=== PATIENT | female | born 1980 | race Caucasian/White ===

== ENCOUNTER 2016-11-24 13:04 | Emergency (ER) | payer MEDICAID, OTHER ==
[~2016-11-24] VITALS: Ht 154.9 cm; Wt 44.5 kg
[2016-11-24] MEDS ORDERED: CEFTRIAXONE 500 MG VIAL IM ONE ×2 (13:30→14:00)
[2016-11-24] MEDS ORDERED: AZITHROMYCIN 250 MG TABLET PO ONE (13:30)
[2016-11-24] MEDS ORDERED: AZITHROMYCIN 250 MG TABLET ONE (13:49)
[2016-11-24] MEDS ORDERED: CEFTRIAXONE 500 MG VIAL ONE (13:49)
[2016-11-24] MEDS ORDERED: LIDOCAINE HCL 1% 20 ML VIAL ONE (13:50)
[2016-11-24 13:52] LABS: *BILIRUBIN,URIN NEGATIVE (NEGATIVE); *BLOOD, URINE NEGATIVE (NEGATIVE); *CLARITY,URINE CLEAR (CLEAR); *COLOR,URINE YELLOW (YELLOW); *KETONES,URINE NEGATIVE (NEGATIVE); *PROTEIN,URINE NEGATIVE (NEGATIVE); *UROBILINOGEN,URINE 0.2 E.U./dl (NORMAL); LEUKOCYTE ESTERASE ,URINE NEGATIVE (NEGATIVE); NITRITE, URINE NEGATIVE (NEGATIVE); UGLUCOSE NEGATIVE (NEGATIVE)
--- NOTE | 2016-11-24 13:53 | NUR ---
Female supervisor matrix accompanied female patient for (DR RUBI).
[2016-11-24 14:08] LABS: *URINE HCG, QUAL NEGATIVE (NEGATIVE)
--- NOTE | 2016-11-24 14:42 | NUR ---
Patient discharged to home in stable conditon. Written and verbal after care instructions given. Patient verbalizes understanding of instructions.
[2016-11-24 14:44] VITALS: BP 114/64
[2016-11-24 14:45] LABS: MUCUS,URINE FEW /LPF (0-FEW); SQUAMOUS EPITHELIAL CELL,UR MODERATE /HPF (NONE SEEN); WBC,URINE 0-3 /HPF (0-3)
== END 2016-11-24 14:45 | disposition home or self-care (01) ==
LOC: ER 13:04
DX: N76.0 Acute vaginitis (principal); J06.9 Acute upper respiratory infection, unspecified
CPT/HCPCS: 84703; 87210; A4663; J0696; J3490; Q0144

== ENCOUNTER 2017-04-05 21:17 | Emergency (ER) | payer MEDICAID, OTHER ==
[~2017-04-05] VITALS: Ht 154.9 cm; Wt 44.5 kg
--- NOTE | 2017-04-05 21:47 | NUR ---
Pt came in c/o right foot pain as she hit her right foot. Her care continue as she is been seen by .
--- NOTE | 2017-04-05 21:55 | NUR ---
Pt remain alert, responsive as orders noted for right foot X-RAY but refused test as she signed a waver for the X-RAY. Her care continue as waits X-RAY to be done.
--- NOTE | 2017-04-05 22:09 | NUR ---
Pt is noted resting in bed as X-RAY as ordered. Her care continue as awaits results.
--- NOTE | 2017-04-05 22:11 | NUR ---
Pt noted alert, responsive as result came in for X-RAY off the right foot and MD as read the results to pt and she is been discharge to home with right foot been cast/splinted as ordered.
[2017-04-05 22:17] VITALS: BP 114/66
== END 2017-04-05 22:27 | disposition home or self-care (01) ==
LOC: ER 21:19
DX: S92.511A Displaced fracture of proximal phalanx of right lesser toe(s), initial encounter for closed fracture (principal); W23.0XXA Caught, crushed, jammed, or pinched between moving objects, initial encounter; Y93.89 Activity, other specified; Y92.9 Unspecified place or not applicable; Y99.9 Unspecified external cause status
CPT/HCPCS: 29515; 73660; 99284; A4663

== ENCOUNTER 2017-04-13 18:35 | Emergency (ER) | payer MEDICAID, OTHER ==
[~2017-04-13] VITALS: Ht 154.9 cm; Wt 44.5 kg
[2017-04-13] MEDS ORDERED: ACET-2154 PO (18:44)
--- NOTE | 2017-04-13 19:32 | NUR ---
Pt ambulated to room with steady gait. Pt c/o cough and pain with deep breathing radiating to her back getting progressively worse over 5 days. Resp even and unlabored. Pt speaking in full sentences, no resp distress noted. Lungs CTA. Pt resting in position of comfort for self, awaiting further eval.
--- NOTE | 2017-04-13 21:52 | NUR ---
Patient discharged to home in stable conditon. Written and verbal after care instructions given. Patient verbalizes understanding of instructions.
[2017-04-13 21:53] VITALS: BP 132/80
== END 2017-04-13 21:53 | disposition home or self-care (01) ==
LOC: ER 18:36
DX: J20.9 Acute bronchitis, unspecified (principal)
CPT/HCPCS: 71010; A4663

== ENCOUNTER 2017-05-16 10:21 | Emergency (ER) | payer OTHER ==
[~2017-05-16] VITALS: Ht 154.9 cm; Wt 45.4 kg
[~2017-05-16 10:21] MED LIST: ACET-2154 PO
[2017-05-16 10:51] LABS: *BILIRUBIN,URIN NEGATIVE (NEGATIVE); *BLOOD, URINE NEGATIVE (NEGATIVE); *CLARITY,URINE CLEAR (CLEAR); *COLOR,URINE YELLOW (YELLOW); *KETONES,URINE NEGATIVE (NEGATIVE); *PROTEIN,URINE NEGATIVE (NEGATIVE); *UROBILINOGEN,URINE 0.2 E.U./dl (NORMAL); LEUKOCYTE ESTERASE ,URINE TRACE (NEGATIVE); NITRITE, URINE NEGATIVE (NEGATIVE); PH,URINE 6.5 (5.0-8.0); UGLUCOSE NEGATIVE (NEGATIVE)
[2017-05-16 11:07] LABS: BACTERIA,URINE FEW /HPF (NONE SEEN); RBC,URINE 0-3 /HPF (0-3); SQUAMOUS EPITHELIAL CELL,UR FEW /HPF (NONE SEEN); WBC,URINE 0-3 /HPF (0-3)
[2017-05-16 11:08] LABS: BASOPHILS % (AUTO) 0.1 % (0.0-2.0); EOSINOPHILS % (AUTO) 0.4 % (0.0-7.0); HEMATOCRIT 37.8 % (31.2-41.9); HEMOGLOBIN 12.9 g/dL (10.9-14.3); LYMPHOCYTES # (AUTO) 1.9 K/uL (20.0-40.0); MEAN CORPUSCULAR HEMOGLOBIN 31.1 uug (24.7-32.8); MEAN CORPUSCULAR HGB CONC 34 g/dL (32.3-35.6); MONOCYTES # (AUTO) 0.7 K/uL (2.0-10.0); NEUTROPHILS # (AUTO) 5.2 K/uL (1.8-8.9); NEUTROPHILS % (AUTO) 66.5 % (38.5-71.5); PLATELET COUNT (AUTO) 288 K/uL (179-408); RED BLOOD CELL COUNT(AUTO) 4.15 MIL/uL (3.63-4.92); WHITE BLOOD COUNT (AUTO) 7.8 K/uL (3.8-11.8)
[2017-05-16 11:09] LABS: CREATININE 0.8 mg/dL (0.6-1.3); POTASSIUM 4.2 mmol/L (3.5-5.1)
[2017-05-16 11:14] LABS: BILIRUBIN,TOTAL 0.3 mg/dL (0.2-1.0); TOTAL PROTEIN, SERUM 7.3 g/dL (6.4-8.2)
[2017-05-16 12:04] LABS: *URINE HCG, QUAL NEGATIVE (NEGATIVE)
[2017-05-16] MEDS ORDERED: CIPROFLOXACIN HCL 250 MG TABLET PO ONE (12:04)
[2017-05-16] MEDS ORDERED: PHENAZOPYRIDINE HCL 100 MG TABLET PO ONE (12:05)
--- NOTE | 2017-05-16 12:17 | NUR ---
Patient discharged to home in stable conditon. Written and verbal after care instructions given. Patient verbalizes understanding of instructions.
[2017-05-16 12:18] VITALS: BP 111/71
[2017-05-16] MEDS ORDERED: PHENAZOPYRIDINE HCL 100 MG TABLET ONE (12:23)
[2017-05-16] MEDS ORDERED: CIPROFLOXACIN HCL 250 MG TABLET ONE (12:23)
[2017-05-19 10:08] LABS: *GC NAA Negative (Negative); *TRIC.VAG. NAA Negative (Negative)
== END 2017-05-16 12:18 | disposition home or self-care (01) ==
LOC: ER 10:21
DX: N39.0 Urinary tract infection, site not specified (principal)
CPT/HCPCS: 36415; 84703; 85025; 87210; 87491; A4663

== ENCOUNTER 2017-05-30 12:04 | Emergency (ER) | payer OTHER ==
[~2017-05-30] VITALS: Ht 154.9 cm; Wt 44.5 kg
[2017-05-30 12:38] LABS: *BILIRUBIN,URIN NEGATIVE (NEGATIVE); *BLOOD, URINE NEGATIVE (NEGATIVE); *CLARITY,URINE CLEAR (CLEAR); *COLOR,URINE YELLOW (YELLOW); *KETONES,URINE NEGATIVE (NEGATIVE); *PROTEIN,URINE NEGATIVE (NEGATIVE); *UROBILINOGEN,URINE 0.2 E.U./dl (NORMAL); LEUKOCYTE ESTERASE ,URINE NEGATIVE (NEGATIVE); NITRITE, URINE NEGATIVE (NEGATIVE); PH,URINE 6.5 (5.0-8.0); UGLUCOSE NEGATIVE (NEGATIVE)
[2017-05-30 12:39] LABS: *URINE HCG, QUAL NEGATIVE (NEGATIVE)
[2017-05-30 12:46] LABS: BACTERIA,URINE NONE SEEN /HPF (NONE SEEN); RBC,URINE NONE SEEN /HPF (0-3); WBC,URINE 0-3 /HPF (0-3)
[2017-05-30 12:47] LABS: SQUAMOUS EPITHELIAL CELL,UR FEW /HPF (NONE SEEN)
--- NOTE | 2017-05-30 13:20 | NUR ---
Patient discharged to home in stable conditon. Written and verbal after care instructions given. Patient verbalizes understanding of instructions.pt with family members
== END 2017-05-30 13:22 | disposition home or self-care (01) ==
LOC: ER 12:09
DX: N76.0 Acute vaginitis (principal)
CPT/HCPCS: 81001; 84703; 99284; A4663

== ENCOUNTER 2018-02-08 13:57 | Emergency (ER) | payer OTHER ==
[~2018-02-08] VITALS: Ht 154.9 cm; Wt 45.4 kg
[2018-02-08] MEDS ORDERED: IV NORMAL SALINE 1000 ML BAG IV ONE (14:15)
[2018-02-08] MEDS ORDERED: ONDANSETRON 4 MG/2 ML VIAL IV ONE (14:15)
[2018-02-08] MEDS ORDERED: ONDANSETRON 4 MG/2 ML VIAL ONE (14:32)
[2018-02-08 14:36] LABS: CREATININE 0.8 mg/dL (0.6-1.3)
[2018-02-08 14:41] LABS: BASOPHILS % (AUTO) 0.5 % (0.0-2.0); EOSINOPHILS % (AUTO) 0.6 % (0.0-7.0); HEMATOCRIT 42.5 % (31.2-41.9); HEMOGLOBIN 14.4 g/dL (10.9-14.3); LYMPHOCYTES # (AUTO) 1.9 K/uL (20.0-40.0); LYMPHOCYTES % (AUTO) 24.8 % (20.5-51.5); MEAN CORPUSCULAR HEMOGLOBIN 31.2 uug (24.7-32.8); MEAN CORPUSCULAR HGB CONC 34 g/dL (32.3-35.6); MEAN CORPUSCULAR VOLUME 92.3 fL (75.5-95.3); MONOCYTES # (AUTO) 0.6 K/uL (2.0-10.0); MONOCYTES % (AUTO) 7.1 % (0.0-11.0); NEUTROPHILS # (AUTO) 5.2 K/uL (1.8-8.9); PLATELET COUNT (AUTO) 331 K/uL (179-408); RED BLOOD CELL COUNT(AUTO) 4.61 MIL/uL (3.63-4.92); WHITE BLOOD COUNT (AUTO) 7.8 K/uL (3.8-11.8)
[2018-02-08 14:43] LABS: BILIRUBIN,DIRECT 0.1 mg/dL (0.0-0.2); BILIRUBIN,TOTAL 0.5 mg/dL (0.2-1.0); TOTAL PROTEIN, SERUM 7.8 g/dL (6.4-8.2)
--- NOTE | 2018-02-08 15:33 | NUR ---
Patient discharged to home in stable conditon. Written and verbal after care instructions given. Patient verbalizes understanding of instructions.PT SAYS FEELS BETTER, PT WITH FAMILY MEMBER.
[2018-02-08 15:34] VITALS: BP 111/60
== END 2018-02-08 15:30 | disposition home or self-care (01) ==
LOC: ER 13:57
DX: R19.7 Diarrhea, unspecified (principal); Z79.891 Long term (current) use of opiate analgesic
CPT/HCPCS: 36415; 80048; 80076; 83690; 84703; 85025; 96361; 96374; 99284; A4663; J2405; J7030

== ENCOUNTER 2022-01-08 16:54 | Emergency (ER) | payer OTHER ==
[~2022-01-08] VITALS: Ht 157.5 cm; Wt 45.4 kg
--- NOTE | 2022-01-08 17:59 | NUR ---
Pt escorted to bathroom since she stated that she needs to urinate. Sample collected incase ua is ordered. Pt ambulated with steady gait. No s/sxof stroke present. Pt has good strength bilat equal with good muscle tone. Pt escorted back to roomand place in pos of comfort. Awaiting EDMD for eval.
--- NOTE | 2022-01-08 18:14 | NUR ---
UA sent to lab
--- NOTE | 2022-01-08 18:40 | NUR ---
Pt taken to CT for CT of head due to facial numbness. Pt transported via gurney by electronic equipment maint tech. Pt has good color, temp and appearance. VSS.
--- NOTE | 2022-01-08 18:51 | NUR ---
EDMD at bedside to eval pt. Full phy exam perform with neg results. Lungs ctab, Pt NSR on 3-lead without ectopy, RRR normal s1s2 no m/g/r. strong and equal retread technician strength bilat, no drift present in both upper and lower ext. Good distal pulses x4ext. Good muscle tone, steady gait, NAD, PERRLA, no jvd, no trach deviation, no gross deformities, no dental lesions. PE wnl, pt otherwise healthy with no med issues, lives a very healthy lifestyle with clean eatting and clean living. Pt denies any pain, sob, dizziness, n/v, or discomfort. VSS, 103/72, 99%, 78bpm, 16rpm. no s/sx of distress.
[2022-01-08 19:05] LABS: *URINE HCG, QUAL NEG (NEGATIVE)
--- NOTE | 2022-01-08 19:07 | NUR ---
Pt brought back from CT by tech via [employer]. Pt placed back in room 2a, VSS.
--- NOTE | 2022-01-08 19:18 | NUR ---
senior technical editor at bedside to draw labs.
[2022-01-08 19:26] LABS: HEMATOCRIT 37.8 % (31.2-41.9); MEAN CORPUSCULAR HEMOGLOBIN 30.7 uug (24.7-32.8); MEAN CORPUSCULAR VOLUME 90.1 fL (75.5-95.3); PLATELET COUNT (AUTO) 366 K/uL (179-408)
[2022-01-08 19:28] LABS: *AMPHETAMINE, URINE NEGATIVE (NEGATIVE); *CANNABINOID, URINE POSITIVE (NEGATIVE); *COCCAINE, URINE NEGATIVE (NEGATIVE); *OPIATE, URINE NEGATIVE (NEGATIVE); *PHENCYCLIDINE SCREEN,URINE NEGATIVE (NEGATIVE)
[2022-01-08 19:34] LABS: CREATININE 0.9 mg/dL (0.6-1.3); POTASSIUM 3.9 mmol/L (3.5-5.1)
[2022-01-08 19:40] LABS: BILIRUBIN,DIRECT 0.1 mg/dL (0.0-0.2); BILIRUBIN,TOTAL 0.4 mg/dL (0.2-1.0); TOTAL PROTEIN, SERUM 7.4 g/dL (6.4-8.2)
--- NOTE | 2022-01-08 20:39 | NUR ---
Patient discharged to home in stable condition. Written and verbal after care instructions given. Patient verbalizes understanding of instructions. Stressed follow up or return to ER for worsening s/s. Pt out of ER with steady gait, no acute signs of distress, VSS, all belongings taken, provided with copies of lab and CT results.
[2022-01-08 20:41] VITALS: BP 111/80
== END 2022-01-08 20:41 | disposition home or self-care (01) ==
LOC: ER 16:59
DX: R20.2 Paresthesia of skin (principal)
CPT/HCPCS: 36415; 70450; 84703; 85025; 93005; A4663

== ENCOUNTER 2022-04-14 21:44 | Emergency (ER) | payer OTHER ==
[~2022-04-14] VITALS: Ht 162.6 cm; Wt 49.9 kg
--- NOTE | 2022-04-14 22:45 | NUR ---
Patient a/o x 4. NAD distredd noted.
--- NOTE | 2022-04-14 23:00 | NUR ---
Dr. Fan at bedside. MSE in progress.
[2022-04-14] MEDS ORDERED: IBUPROFEN 600 MG TABLET PO ONE (23:15)
[2022-04-14] MEDS ORDERED: IBUPROFEN 600 MG TABLET ONE (23:23)
[2022-04-15] MEDS ORDERED: TDAP DIPH,PERTUSS,TET VAC/PF 0.5 ML DISP.SYRIN IM ONE ×2 (00:39→00:45)
--- NOTE | 2022-04-15 01:25 | NUR ---
Patient discharged to home in stable condition. A/Ox4. NAD noted. All belongings with patient. Written and verbal after care instructions given. Patient verbalizes understanding of instructions. Stressed follow up or return to ER for worsening s/s.
[2022-04-15 01:35] VITALS: BP 100/68
== END 2022-04-15 01:25 | disposition home or self-care (01) ==
LOC: ER 21:44
DX: S93.601A Unspecified sprain of right foot, initial encounter (principal); W03.XXXA Other fall on same level due to collision with another person, initial encounter; Y92.89 Other specified places as the place of occurrence of the external cause
CPT/HCPCS: 73610; 73630; 90715

== ENCOUNTER 2022-08-20 14:45 | Emergency (ER) | payer OTHER ==
[~2022-08-20] VITALS: Ht 154.9 cm; Wt 45.4 kg
[2022-08-20 15:31] LABS: HEMATOCRIT 38.8 % (31.2-41.9); MEAN CORPUSCULAR HEMOGLOBIN 31.1 uug (24.7-32.8); MEAN CORPUSCULAR VOLUME 93.3 fL (75.5-95.3); PLATELET COUNT (AUTO) 399 K/uL (179-408)
[2022-08-20 15:40] LABS: *BILIRUBIN,URIN NEGATIVE (NEGATIVE); *CLARITY,URINE CLEAR (CLEAR); *COLOR,URINE YELLOW (YELLOW); *KETONES,URINE NEGATIVE (NEGATIVE); *UROBILINOGEN,URINE 0.2 E.U./dl (NORMAL); LEUKOCYTE ESTERASE ,URINE NEGATIVE (NEGATIVE); NITRITE, URINE NEGATIVE (NEGATIVE); PH,URINE 6.5 (5.0-8.0); UGLUCOSE NEGATIVE (NEGATIVE)
[2022-08-20 15:40] LABS: CARBON DIOXIDE 25 mmol/L (21-32); CHLORIDE 102 mmol/L (98-107); CREATININE 0.9 mg/dL (0.6-1.3); GLUCOSE 100 mg/dL (74-106); UREA NITROGEN, BLOOD 12 mg/dL (7-18)
[2022-08-20 15:44] LABS: *BLOOD, URINE TRACE (NEGATIVE)
--- NOTE | 2022-08-20 16:30 | NUR ---
Gave pt RX and d/c instructions, pt verbalized understanding.
[2022-08-20 17:28] LABS: BACTERIA,URINE NONE SEEN /HPF (NONE SEEN); MUCUS,URINE FEW /LPF (0-FEW); SQUAMOUS EPITHELIAL CELL,UR FEW /HPF (NONE SEEN); WBC,URINE 0-3 /HPF (0-3)
== END 2022-08-20 16:32 | disposition home or self-care (01) ==
LOC: ER 14:45
DX: D25.9 Leiomyoma of uterus, unspecified (principal)
CPT/HCPCS: 36415; 76856; 85025; 86850; 86900; 86901; A4663

== ENCOUNTER 2023-01-03 17:15 | Emergency (ER) | payer OTHER ==
[~2023-01-03] VITALS: Ht 154.9 cm; Wt 45.4 kg
--- NOTE | 2023-01-03 17:50 | NUR ---
Patient ambulated into ER 4b, informed of plan of care, #20g established in left ac, blood collected and sent to lab with urine. Patient awaiting ER provider exam. No s/s of any distress noted at this time.
[2023-01-03 18:36] LABS: *BILIRUBIN,URIN NEGATIVE (NEGATIVE); *BLOOD, URINE NEGATIVE (NEGATIVE); *COLOR,URINE YELLOW (YELLOW); *KETONES,URINE NEGATIVE (NEGATIVE); *UROBILINOGEN,URINE 0.2 E.U./dl (NORMAL); LEUKOCYTE ESTERASE ,URINE TRACE (NEGATIVE); NITRITE, URINE NEGATIVE (NEGATIVE); UGLUCOSE NEGATIVE (NEGATIVE)
[2023-01-03 18:37] LABS: *CLARITY,URINE EH052792 (CLEAR); *URINE HCG, QUAL NEGATIVE (NEGATIVE); RBC,URINE 0-3 /HPF (0-3)
--- NOTE | 2023-01-03 19:20 | NUR ---
IV removed. Catheter intact and site benign. Pressure and 4x4 gauze applied to site. No bleeding noted.
--- NOTE | 2023-01-03 19:24 | NUR ---
Patient discharged to home in stable condition. Written and verbal after care instructions given. Patient verbalizes understanding of instructions. Stressed follow up or return to ER for worsening s/s.
[2023-01-03 19:25] VITALS: BP 110/66
== END 2023-01-03 19:26 | disposition home or self-care (01) ==
LOC: ER 17:15
DX: R10.30 Lower abdominal pain, unspecified (principal); R10.2 Pelvic and perineal pain; Z79.899 Other long term (current) drug therapy
CPT/HCPCS: 84703; A4663

== ENCOUNTER 2023-02-17 02:05 | Emergency (ER) | payer OTHER ==
[~2023-02-17] VITALS: Ht 154.9 cm; Wt 43.1 kg
[2023-02-17] MEDS ORDERED: PHENAZOPYRIDINE HCL 100 MG TABLET PO ONE ×2 (02:45→03:00)
[2023-02-17] MEDS ORDERED: PHENAZOPYRIDINE HCL 100 MG TABLET ONE ×2 (02:46→03:03)
[2023-02-17 02:49] LABS: *BILIRUBIN,URIN NEGATIVE (NEGATIVE); *BLOOD, URINE 3+ (NEGATIVE); *COLOR,URINE YELLOW (YELLOW); *KETONES,URINE NEGATIVE (NEGATIVE); *PROTEIN,URINE 2+ (NEGATIVE); *UROBILINOGEN,URINE 0.2 E.U./dl (NORMAL); LEUKOCYTE ESTERASE ,URINE TRACE (NEGATIVE); NITRITE, URINE NEGATIVE (NEGATIVE); UGLUCOSE NEGATIVE (NEGATIVE)
[2023-02-17 02:51] LABS: *CLARITY,URINE HAZY (CLEAR)
[2023-02-17 02:53] LABS: *URINE HCG, QUAL NEGATIVE (NEGATIVE); BACTERIA,URINE FEW /HPF (NONE SEEN); RBC,URINE TNTC /HPF (0-3); SQUAMOUS EPITHELIAL CELL,UR FEW /HPF (NONE SEEN)
[2023-02-17] MEDS ORDERED: CEFTRIAXONE 500 MG VIAL IM ONE (03:00)
[2023-02-17] MEDS ORDERED: CEFTRIAXONE 500 MG VIAL ONE (03:03)
[2023-02-17] MEDS ORDERED: LIDOCAINE HCL 1% 20 ML VIAL ONE (03:03)
[2023-02-17] MEDS ORDERED: CEFP200T14 PO (03:04)
[2023-02-17] MEDS ORDERED: DOXY100C5 PO (03:04)
[2023-02-17] MEDS ORDERED: PHEN-705 PO (03:04)
[2023-02-17 03:14] VITALS: BP 141/67; O2SAT 97
== END 2023-02-17 03:14 | disposition home or self-care (01) ==
LOC: ER 02:11
DX: N39.0 Urinary tract infection, site not specified (principal); R30.0 Dysuria; Z79.899 Other long term (current) drug therapy
CPT/HCPCS: 99283; 81001; 84703; 96372; 87040; J0696; J3490

== ENCOUNTER 2023-05-10 21:08 | Emergency (ER) | payer OTHER ==
[~2023-05-10] VITALS: Ht 154.9 cm; Wt 43.5 kg
[~2023-05-10 21:08] MED LIST changes: +CEFP200T14 PO; +DOXY100C5 PO; +PHEN-705 PO
[2023-05-10 21:57] LABS: *BILIRUBIN,URIN 1+ (NEGATIVE); *BLOOD, URINE NEGATIVE (NEGATIVE); *CLARITY,URINE CLEAR (CLEAR); *COLOR,URINE YELLOW (YELLOW); *KETONES,URINE 2+ (NEGATIVE); *PROTEIN,URINE 1+ (NEGATIVE); *UROBILINOGEN,URINE 0.2 E.U./dl (NORMAL); LEUKOCYTE ESTERASE ,URINE NEGATIVE (NEGATIVE); NITRITE, URINE NEGATIVE (NEGATIVE); PH,URINE 6.5 (5.0-8.0); UGLUCOSE NEGATIVE (NEGATIVE)
[2023-05-10 21:58] LABS: RBC,URINE 0-3 /HPF (0-3); WBC,URINE 0-3 /HPF (0-3)
[2023-05-10 22:00] LABS: *URINE HCG, QUAL NEGATIVE (NEGATIVE)
[2023-05-10] MEDS ORDERED: DOXYCYCLINE HYCLATE 100 MG TABLET PO ONE (22:15)
[2023-05-10] MEDS ORDERED: CEFTRIAXONE 500 MG VIAL IM ONE (22:15)
[2023-05-10] MEDS ORDERED: LIDOCAINE HCL 1% 20 ML VIAL ONE (22:24)
[2023-05-10] MEDS ORDERED: DOXYCYCLINE HYCLATE 100 MG TABLET ONE (22:24)
[2023-05-10] MEDS ORDERED: CEFTRIAXONE 500 MG VIAL ONE (22:24)
[2023-05-10] MEDS ORDERED: DOXY100C5 PO (22:49)
[2023-05-10] MEDS ORDERED: CYCL10TA9 PO (22:49)
[2023-05-10 23:04] VITALS: BP 105/64; O2SAT 97
[2023-05-13 02:06] LABS: *TRIC.VAG. NAA Negative (Negative)
== END 2023-05-10 23:05 | disposition home or self-care (01) ==
LOC: ER 21:12
DX: N89.8 Other specified noninflammatory disorders of vagina (principal); M41.9 Scoliosis, unspecified; F41.9 Anxiety disorder, unspecified; M54.50 Low back pain, unspecified; Z79.2 Long term (current) use of antibiotics; Z79.899 Other long term (current) drug therapy
CPT/HCPCS: 99283; 81001; 84703; 87210; 96372; 87491; J0696; J3490; A4606; A4663

== ENCOUNTER → 2023-06-02 | Emergency (ER) | payer OTHER ==
[~2023-06-02] VITALS: Ht 154.9 cm; Wt 43.1 kg
[~2023-06-02] MED LIST changes: +CYCL10TA9 PO
[2023-06-02 10:16] VITALS: O2SAT 100
[2023-06-02 10:44] LABS: BASOPHILS % (AUTO) 0.5 % (0.0-2.0); EOSINOPHILS # (AUTO) 0.1 K/uL (0.0-0.7); HEMATOCRIT 38.1 % (31.2-41.9); HEMOGLOBIN 12.6 g/dL (10.9-14.3); LYMPHOCYTES # (AUTO) 1.9 K/uL (0.8-4.8); LYMPHOCYTES % (AUTO) 26.7 % (20.5-51.5); MEAN CORPUSCULAR HEMOGLOBIN 30.4 uug (24.7-32.8); MEAN CORPUSCULAR HGB CONC 33 g/dL (32.3-35.6); MEAN CORPUSCULAR VOLUME 92.1 fL (75.5-95.3); MONOCYTES # (AUTO) 0.7 K/uL (0.1-1.30); MONOCYTES % (AUTO) 10.1 % (0.0-11.0); NEUTROPHILS # (AUTO) 4.5 K/uL (1.8-8.9); NEUTROPHILS % (AUTO) 61.7 % (38.5-71.5); PLATELET COUNT (AUTO) 347 K/uL (179-408); RED BLOOD CELL COUNT(AUTO) 4.13 MIL/uL (3.63-4.92); RED CELL DISTRIBUTION WIDTH 13.8 % (12.3-17.7); WHITE BLOOD COUNT (AUTO) 7.3 K/uL (3.8-11.8)
[2023-06-02 10:58] LABS: CALCIUM 9.4 mg/dL (8.5-10.1); CREATININE 0.8 mg/dL (0.6-1.3); DIFFERENTIAL COMMENT 1; POTASSIUM 4.5 mmol/L (3.5-5.1)
== END | disposition home or self-care (01) ==
LOC: ER 10:10
DX: Z13.5 Encounter for screening for eye and ear disorders (principal); J40 Bronchitis, not specified as acute or chronic; R20.2 Paresthesia of skin; Z79.899 Other long term (current) drug therapy
CPT/HCPCS: 36415; 83605; 85025; A4606; A4663

== ENCOUNTER 2023-07-06 22:13 | Emergency (ER) | payer OTHER | END 2023-07-06 22:16 | disposition left against medical advice (07) | LOC: ER 22:13 | DX: Z53.21 Procedure and treatment not carried out due to patient leaving prior to being seen by health care provider (principal) ==

== ENCOUNTER 2024-04-23 20:15 | Emergency (ER) | payer OTHER ==
[~2024-04-23] VITALS: Ht 154.9 cm; Wt 56.7 kg
[2024-04-23 21:16] LABS: *BILIRUBIN,URIN NEGATIVE (NEGATIVE); *BLOOD, URINE TRACE (NEGATIVE); *CLARITY,URINE CLEAR (CLEAR); *COLOR,URINE YELLOW (YELLOW); *KETONES,URINE 1+ (NEGATIVE); *PROTEIN,URINE NEGATIVE (NEGATIVE); *UROBILINOGEN,URINE 0.2 E.U./dl (NORMAL); LEUKOCYTE ESTERASE ,URINE 1+ (NEGATIVE); NITRITE, URINE NEGATIVE (NEGATIVE); UGLUCOSE NEGATIVE (NEGATIVE)
[2024-04-23 21:19] LABS: BASOPHILS % (AUTO) 0.3 % (0.0-2.0); EOSINOPHILS % (AUTO) 0.3 % (0.0-7.0); HEMATOCRIT 36.5 % (31.2-41.9); HEMOGLOBIN 11.9 g/dL (10.9-14.3); MEAN CORPUSCULAR HEMOGLOBIN 30.1 uug (24.7-32.8); MEAN CORPUSCULAR HGB CONC 33 g/dL (32.3-35.6); MEAN CORPUSCULAR VOLUME 92.3 fL (75.5-95.3); MONOCYTES # (AUTO) 0.8 K/uL (0.1-1.30); MONOCYTES % (AUTO) 7.4 % (0.0-11.0); NEUTROPHILS # (AUTO) 6.8 K/uL (1.8-8.9); PLATELET COUNT (AUTO) 363 K/uL (179-408); RED BLOOD CELL COUNT(AUTO) 3.95 MIL/uL (3.63-4.92); RED CELL DISTRIBUTION WIDTH 13.8 % (12.3-17.7); WHITE BLOOD COUNT (AUTO) 10.6 K/uL (3.8-11.8)
[2024-04-23 21:20] LABS: CREATININE 0.8 mg/dL (0.6-1.3); POTASSIUM 3.2 mmol/L (3.5-5.1)
[2024-04-23 21:25] LABS: ALBUMIN 3.8 g/dL (3.4-5.0); BILIRUBIN,TOTAL 0.5 mg/dL (0.2-1.0); TOTAL PROTEIN, SERUM 7.3 g/dL (6.4-8.2)
[2024-04-23 21:32] LABS: DIFFERENTIAL COMMENT 1
[2024-04-23 21:51] LABS: RBC,URINE 0-3 /HPF (0-3)
[2024-04-23 21:52] LABS: BACTERIA,URINE FEW /HPF (NONE SEEN); SQUAMOUS EPITHELIAL CELL,UR FEW /HPF (NONE SEEN)
[2024-04-23 21:55] LABS: HIV-1 p24 ANTIGEN NON REACTIVE (NONREACTIVE); HIV-1/2 ANTIBODY NON REACTIVE (NONREACTIVE)
[2024-04-23] MEDS ORDERED: PHENAZOPYRIDINE HCL 100 MG TABLET ONE (22:15)
[2024-04-23] MEDS ORDERED: PHEN-704 PO (22:16)
[2024-04-23] MEDS ORDERED: POTASSIUM CHLORIDE 20 MEQ TAB.PRT.SR ONE (22:16)
[2024-04-23] MEDS ORDERED: CEphaleXIN 500 MG CAPSULE ONE (22:16)
[2024-04-23] MEDS ORDERED: CEPH500C2 PO (22:16)
[2024-04-23] MEDS: POTASSIUM CHLORIDE 20 MEQ TAB.PRT.SR PO ONE (22:19)
[2024-04-23] MEDS: CEphaleXIN 500 MG CAPSULE PO ONE (22:19)
[2024-04-23] MEDS: PHENAZOPYRIDINE HCL 100 MG TABLET PO ONE (22:19)
[2024-04-23 22:32] VITALS: BP 112/63; TEMP 98.6; O2SAT 99
[2024-04-23 22:48] LABS: *URINE HCG, QUAL NEGATIVE (NEGATIVE)
[2024-04-25 23:08] LABS: *CHLAMYDIA NAA Negative (Negative); *GC NAA Negative (Negative); *TRIC.VAG. NAA Negative (Negative)
== END 2024-04-23 22:32 | disposition home or self-care (01) ==
LOC: ER 20:16
DX: N89.8 Other specified noninflammatory disorders of vagina (principal); M54.50 Low back pain, unspecified; E87.6 Hypokalemia; R10.2 Pelvic and perineal pain; J40 Bronchitis, not specified as acute or chronic; Z86.16 Personal history of COVID-19; Z87.440 Personal history of urinary (tract) infections
CPT/HCPCS: 36415; 84703; 85025; 86592; 87210; 87491; 87806; A4606; A4663